=== PATIENT | female | born 1935 | race Hispanic/Latino ===

== ENCOUNTER 2017-06-20 08:27 | Outpatient (CLI) | payer MEDICARE ==
--- NOTE | 2017-06-20 14:36 | Mammography Report ---
BILATERAL DIGITAL SCREENING MAMMOGRAM with CAD : 06/20/17 08:27:00 CLINICAL: Routine screening. COMPARISON:05/24/16 FINDINGS: The breasts are heterogeneously dense, which may obscure small masses.Scattered bilateral benign calcifications. No mass, architectural distortion or suspicious calcifications. IMPRESSION: No mammographic evidence of malignancy. BI-RADS CATEGORY: 2 -- Benign RECOMMENDATION: Routine mammographic screening in one year. COMMENT: Patient follow-up letters are generated by our [employer] application.
--- NOTE | 2017-06-20 14:46 | Mammography Report ---
BONE DEXA:06/20/17 08:27:00 CLINICAL: Postmenopausal history of a T7 compression fracture. COMPARISON: 12/26/14 TECHNIQUE: Two site bone DEXA performed on an Hologic scanner. FINDINGS: The average BMD of the lumbar spine L1-L4 is 0.942g/cm squared with a T-score of -1.0 and a Z-score of +1.8. This compares to 0.919g/cm squared on the last exam and represents a +2.5% change from the previous baseline. The average BMD of the right hip is 0.844g/cm squared with a T-score of -0.8 and a Z-score of +1.3. This compares to 0.801g/cm squared on the last exam and represents a +5.3% change from the previous baseline. The femoral neck BMD is 0.674g/cm squared with a T score of -1.6 and a Z score of +0.8. IMPRESSION: 1. WHO classification: Normal with average fracture risk based on spine measurements. A modest improvement in spine BMD compared to the prior exam. 2. WHO classification: Normal with average fracture risk based on total right hip measurements. Moderate improvement in total right hip BMD compared to the prior exam. However, WHO classification: Osteopenia with increase fracture risk based on right femoral neck measurements. RECOMMENDATION: Clinical correlation and routine screening. DEFINITIONS: BMD = Bone Mineral Density T-score = BMD related to mean peak bone mass of young adult (mean expressed in Standard Deviation) Z-score = Age matched BMD expressed in SD World Health Organization (WHO) Diagnostic Criteria Normal T-score > -1 SD Osteopenia T-score between -1 and -2.4 SD Osteoporosis T-score -2.5 SD or below NOTE: BMD is not the only risk factor for fracture; also consider factors such as the patient's age, risk of falling, previous osteoporotic fracture, family history of osteoporotic fractures, current smoker, and low body weight. Z-scores are not calculated if >80 years of age.
== END 2017-06-20 08:28 | disposition home or self-care (01) ==
LOC: SPVWC 08:27
PROVIDERS: ATTEND Obstetrics & Gynecology Gynecology
DX: Z12.31 Encounter for screening mammogram for malignant neoplasm of breast (principal); M85.88 Other specified disorders of bone density and structure, other site
CPT/HCPCS: 77080; G0202; 77067

== ENCOUNTER 2018-06-28 08:51 | Outpatient (CLI) | payer MEDICARE ==
--- NOTE | 2018-06-28 11:20 | Mammography Report ---
Bilateral mammogram: Compared to 06/20/17 and 05/24/16. CAD study utilized. Findings: Heterogeneous breast parenchyma bilaterally. Benign scattered calcifications bilaterally without significant interval change. No mass. Normal axilla. Impression: Benign findings. Annual followup recommended. BI-RADS CATEGORY: 2 = Benign ACR BI-RADS MAMMOGRAPHIC CODES: 0 = Needs additional imaging evaluation; 1 = Negative; 2 = Benign; 3 = Probably benign; 4 = Suspicious; 5 = Malignant; 6 = Known biopsy-proven malignancy COMMENT: 1. Dense breast tissue, i.e., adenosis, fibrocystic changes, etc., may obscure an underlying neoplasm. 2. Approximately 10% of cancers are not detected with mammography. 3. A negative mammography report should not delay biopsy if a clinically suspicious mass is present. COMMENT: Patient follow-up letters are generated in [employer].
== END 2018-06-28 08:52 | disposition home or self-care (01) ==
LOC: SPVWC 08:51
PROVIDERS: ATTEND Obstetrics & Gynecology Gynecology
DX: Z12.31 Encounter for screening mammogram for malignant neoplasm of breast (principal)
CPT/HCPCS: 77067